=== PATIENT | female | born 1970 | race Two or more races ===

== ENCOUNTER 2021-12-21 13:03 | Outpatient (CLI) | payer OTHER, SELFPAY ==
--- NOTE | 2021-12-21 13:20 | CRLHL7_ITS ---
For Patients: As a result of the Century Cures Act, medical imaging exams and procedure reports are released immediately into your electronic medical record. You may view this report before your referring provider. If you have questions, please contact your health care provider. BILATERAL SCREENING MAMMOGRAM WITH COMPUTER-AIDED DETECTION TECHNIQUE: CC and MLO views were obtained. These mammographic images have been obtained using full-field digital technique. These mammographic images were interpreted with the benefit of computer-aided detection. COMPARISON FILM: 11/19/18, 11/03/17, 10/25/16. FINDINGS: There are scattered areas of fibroglandular density IMPRESSION: There is no radiographic evidence for malignancy. ASSESSMENT: BI-RADS Category 1: Negative RECOMMENDATION: Routine screening mammogram in 1 year. A lay language report of this examination will be provided to the patient. Adrian Marques M.D. Diagnostic Radiologist [email or web address] [place]/Dictated by: Adrian Marques MD @ 12/22/2021 9:35:00 AM (Electronically Signed)
== END 2021-12-21 13:04 | disposition home or self-care (01) ==
LOC: MAMMO 13:03
PROVIDERS: PCP Family Medicine; Visit Provider Obstetrics & Gynecology
DX: Z12.31 Encounter for screening mammogram for malignant neoplasm of breast (principal)
CPT/HCPCS: 77067

== ENCOUNTER 2023-03-15 15:15 | Outpatient (RCR) | payer OTHER, SELFPAY | END 2023-04-14 10:45 | disposition home or self-care (01) | PROVIDERS: PCP Family Medicine; Visit Provider Orthopaedic Surgery Sports Medicine | DX: M17.0 Bilateral primary osteoarthritis of knee (principal); M25.561 Pain in right knee; M25.562 Pain in left knee; M25.661 Stiffness of right knee, not elsewhere classified; M62.81 Muscle weakness (generalized); Z51.89 Encounter for other specified aftercare | CPT/HCPCS: 97110; 97140; 97161 ==